=== PATIENT | male | born 1955 | race Caucasian/White ===

== ENCOUNTER 2016-12-11 22:50 | Emergency (ER) | payer OTHER ==
[2016-12-11 23:16] VITALS: O2SAT 96
--- NOTE | 2016-12-11 23:38 | ERPHSYRPT ---
- History of Present Illness Time Seen by Provider: 12/11/16 23:34 Source: patient, family Exam Limitations: no limitations Patient Subjective Stated Complaint: dog bite to left index finger Triage Nursing Assessment: pt alert and oriented x3, lung sounds clear, pulses strong and present in radius, cap refill immediate. patietns daughter cleaned with peroxide at home, he came in because concerned he might need stitches Physician History: pt has dog bite to left index; tendon function is intact with full ROM dog shots are UTD for rabies ; pt needs tet. no other injuries; Timing/Duration: today Quality: painful Severity: moderate Location: hands Possible Causes: other (dog bite) Associated Symptoms: denies symptoms Allergies/Adverse Reactions: codeine [Codeine] Allergy (Mild, Verified 10/12/16 14:50) Rash Hx Tetanus, Diphtheria Vaccination/Date Given: No Hx Influenza Vaccination/Date Given: No Hx Pneumococcal Vaccination/Date Given: No Immunizations Up to Date: Yes - Review of Systems Constitutional: No Fever, No Chills Eyes: No Symptoms Ears, Nose, & Throat: No Symptoms Respiratory: No Cough, No Dyspnea Cardiac: No Chest Pain, No Edema, No Syncope Abdominal/Gastrointestinal: No Abdominal Pain, No Nausea, No Vomiting, No Diarrhea Genitourinary Symptoms: No Dysuria Musculoskeletal: No Back Pain, No Neck Pain Skin: No Rash Neurological: No Dizziness, No Focal Weakness, No Sensory Changes Psychological: No Symptoms Endocrine: No Symptoms All Other Systems: Reviewed and Negative - Past Medical History Pertinent Past Medical History: Yes Neurological History: No Pertinent History ENT History: No Pertinent History Cardiac History: No Pertinent History, Hypertension Respiratory History: Bronchitis, Pneumonia Endocrine Medical History: No Pertinent History Musculoskeletal History: Arthritis GI Medical History: No Pertinent History History: No Pertinent History Psycho-Social History: Other Male Reproductive Disorders: Testicular Cancer - Past Surgical History Past Surgical History: Yes Neuro Surgical History: No Pertinent History Cardiac: No Pertinent History Respiratory: No Pertinent History Gastrointestinal: No Pertinent History Genitourinary: No Pertinent History Musculoskeletal: Orthopedic Surgery Male Surgical History: Testicular Surgery, Vasectomy Other Surgical History: back surgery - Social History Smoking Status: Never smoker How long have you smoked: 19 Exposure to second hand smoke: No Drug Use: none Patient Lives Alone: No - Nursing Vital Signs Nursing Vital Signs: Initial Vital Signs Temperature 98.7 F Temperature Source Oral Pulse Rate 83 Respiratory Rate 16 Blood Pressure [] 134/83 Pain Intensity 0 - Physical Exam General Appearance: no apparent distress, alert Eye Exam: PERRL/EOMI, eyes nml inspection Ears, Nose, Throat Exam: normal ENT inspection, pharynx normal, moist mucous membranes Neck Exam: normal inspection, non-tender, supple, full range of motion Respiratory Exam: normal breath sounds, lungs clear, No respiratory distress Cardiovascular Exam: regular rate/rhythm, normal heart sounds Gastrointestinal/Abdomen Exam: soft, mass, No tenderness Rectal Exam: deferred Back Exam: normal inspection, normal range of motion, No CVA tenderness, No vertebral tenderness Extremity Exam: normal range of motion, lacerations (left index) Neurologic Exam: alert, oriented x 3, cooperative, normal mood/affect, sensation nml, No motor deficits Skin Exam: normal color, warm, dry SpO2: 96 Oxygen Delivery: Room Air Procedures - Laceration/Wound Repair Left Finger Wound Location: Left Wound Length (cm): 1.5 (index) Wound's Depth, Shape: irregular, into subcut Wound Explored: clean Irrigated: Yes (100 cc NS) Hibiclens Prep: Yes Anesthesia: 1% Lidocaine Volume Anesthetic (ccs): 2 Wound Debrided: minimal Wound Repaired With: sutures Suture Size/Type: 4-0, prolene Number of Sutures: 3 Layer Closure?: No Sterile Dressing Applied?: Yes Splint Applied?: Yes Sling Applied?: No - Course Nursing assessment & vital signs reviewed: Yes - Radiology Exams Left Hand X-ray Interpretation: Reviewed by me, No Fracture Ordered Tests: Active Orders 24 hr Category Date Time Status Sutures STAT Care 12/11/16 23:40 Active HAND (MINIMUM 3 VIEWS) Stat Exams 12/11/16 23:39 Taken Medication Summary Discontinued Medications Generic Name Dose Route Start Last Admin Trade Name Freq PRN Reason Stop Dose Admin Diphtheria/Tetanus/Acell Pertussis 0.5 ml 12/11/16 23:39 12/12/16 00:38 Adacel Vial IM 12/11/16 23:40 0.5 ml .ONCE ONE Administration Diphtheria/Tetanus/Acell Pertussis Confirm 12/11/16 23:44 Adacel Vial Administered 12/11/16 23:45 Dose 0.5 ml IM .STK-MED ONE - Progress Progress: improved, re-examined Progress Note: 12/12/16 01:30 lac closed by med student under complete supervision , without incident. Counseled pt/family regarding: diagnosis, need for follow-up, rad results - Departure Time of Disposition: 01:31 Departure Disposition: Home Clinical Impression: Laceration, Dog bite Condition: Good Critical Care Time: No Referrals: DARIEL GUTIÉRREZ [Primary Care Provider] - Instructions: Animal Bites, Care for a Laceration After Repair Additional Instructions: keep clean and dry , change dressing when soiled and clean wound with peroxide and redress. sutures may be removed with your dr in 10 days ; return meantime if any concerns; Prescriptions: Amoxicillin/Potassium Clav [Augmentin 875-125 Tablet] 875 mg PO BID #10 tablet Mupirocin [Bactroban OINTMENT] 22 gm TP DAILY #1 tube
[2016-12-11] MEDS ORDERED: Adacel Vial IM ONE ×2 (23:39→23:44)
[2016-12-12 01:53] VITALS: BP 112/60; PULSE 74
--- NOTE | 2016-12-12 08:53 | XRAY ---
Indication: Index finger dog bite. Comparison: None 3 views of the left hand demonstrates fourth finger ring, mild osteopenia, minimal degenerative changes of all IP joints, and moderate degenerative changes at the base of the first metacarpal. No other bony, articular, or soft tissue abnormalities.
== END 2016-12-12 01:55 | disposition home or self-care (01) ==
LOC: ED 22:50
PROC: 0HQGXZZ Repair Left Hand Skin, External Approach (ICD-10-PCS; principal; 2016-12-12)
DX: S61.211A Laceration without foreign body of left index finger without damage to nail, initial encounter (principal); W54.0XXA Bitten by dog, initial encounter
CPT/HCPCS: 12001; 73130; 90471; 90715; 99284

== ENCOUNTER 2017-12-06 09:52 | Emergency (ER) | payer OTHER ==
--- NOTE | 2017-12-06 10:26 | ERPHSYRPT ---
- History of Present Illness Time Seen by Provider: 12/06/17 10:15 Source: patient Exam Limitations: no limitations Patient Subjective Stated Complaint: Weakness Triage Nursing Assessment: Pt presents to the ED with complaints of "shaking and not feeling well." Pt states he began to sweat. Pt states no other complaints, states he has no pain at this time. No distress noted. Pt is A&O x4. Physician History: The patient is a 62-year-old male with his complaining that at about 7:00 this morning while at work he suddenly started sweating and felt nauseated. He did not vomit. He denies shortness of breath or chest pain. The sweating and ill feeling lasted 45 minutes. During this time he also felt like he might pass out but never did. He said when he was walking, he would walk sort of sideways. His work sent him to be evaluated. He now is beginning to feel better. His past medical history is significant for hypertension, mood disorder , tonsillectomy, this ectomy, tumors removed from testicle, and kidney stones. Timing/Duration: today Severity: moderate Modifying Factors: Improves With: nothing Associated Symptoms: nausea, diaphoresis, weakness, No shortness of breath, No chest pain, No syncope Allergies/Adverse Reactions: codeine [Codeine] Allergy (Mild, Verified 12/06/17 11:58) Rash Home Medications: Chlorthalidone [Chlorthalidone] 25 mg PO DAILY 12/06/17 [History] Diazepam [Diazepam] 10 mg PO TIDPRN PRN 12/06/17 [History] Losartan Potassium [Losartan Potassium] 100 mg PO DAILY 12/06/17 [History] Hx Tetanus, Diphtheria Vaccination/Date Given: Yes Hx Influenza Vaccination/Date Given: No Hx Pneumococcal Vaccination/Date Given: No Immunizations Up to Date: No - Review of Systems Constitutional: Weakness Eyes: No Symptoms Ears, Nose, & Throat: No Symptoms Respiratory: No Cough, No Dyspnea Cardiac: No Chest Pain, No Edema, No Syncope Abdominal/Gastrointestinal: Nausea, No Abdominal Pain, No Vomiting, No Diarrhea Genitourinary Symptoms: No Dysuria Musculoskeletal: No Back Pain, No Neck Pain Skin: No Rash Neurological: Dizziness, No Headache Psychological: No Symptoms Endocrine: No Symptoms Hematologic/Lymphatic: No Symptoms Immunological/Allergic: No Symptoms All Other Systems: Reviewed and Negative - Past Medical History Pertinent Past Medical History: Yes Neurological History: No Pertinent History ENT History: No Pertinent History Cardiac History: No Pertinent History, Hypertension Respiratory History: Bronchitis, Pneumonia Endocrine Medical History: No Pertinent History Musculoskeletal History: Arthritis GI Medical History: No Pertinent History History: No Pertinent History Psycho-Social History: Other Male Reproductive Disorders: Testicular Cancer - Past Surgical History Past Surgical History: Yes Neuro Surgical History: No Pertinent History Cardiac: No Pertinent History Respiratory: No Pertinent History Gastrointestinal: No Pertinent History Genitourinary: No Pertinent History Musculoskeletal: Orthopedic Surgery Male Surgical History: Testicular Surgery, Vasectomy Other Surgical History: back surgery - Social History Smoking Status: Former smoker How long have you smoked: 19 Exposure to second hand smoke: No Drug Use: none Patient Lives Alone: No - Nursing Vital Signs Nursing Vital Signs: Initial Vital Signs Temperature 97.6 F 12/06/17 10:00 Pulse Rate 67 12/06/17 10:00 Respiratory Rate 16 12/06/17 10:00 Blood Pressure 143/94 12/06/17 10:00 O2 Sat by Pulse Oximetry 99 12/06/17 10:00 Pain Scale Pain Intensity 0 - Physical Exam General Appearance: no apparent distress, alert Eye Exam: PERRL/EOMI, eyes nml inspection Ears, Nose, Throat Exam: normal ENT inspection, TMs normal, pharynx normal, moist mucous membranes Neck Exam: normal inspection, non-tender, supple, full range of motion Respiratory Exam: normal breath sounds, lungs clear, No respiratory distress Cardiovascular Exam: regular rate/rhythm, normal heart sounds, normal peripheral pulses Gastrointestinal/Abdomen Exam: soft, normal bowel sounds, No tenderness, No mass Rectal Exam: not done Back Exam: normal inspection, normal range of motion, No CVA tenderness, No vertebral tenderness Extremity Exam: normal inspection, normal range of motion, pelvis stable Neurologic Exam: alert, oriented x 3, cooperative, normal mood/affect, nml cerebellar function, nml station & gait, sensation nml, No motor deficits Skin Exam: normal color, warm, dry, No rash Lymphatic Exam: No adenopathy SpO2 Interpretation: normal SpO2: 99 Oxygen Delivery: Room Air - Course EKG Interpreted by Me: RATE, Sinus Rhythm, NORMAL AXIS, NORMAL INTERVALS, NORMAL QRS, NORMAL ST-T, Other (No change compared to EKG 11/26/14.) - Radiology Exams Chest X-ray Interpretation: Reviewed by me, Teleradiologist Report, Negative (per Dr Moe) Abdomen X-ray Interpretation: Reviewed by me, Negative (per Dr Moe) - CT Exams Head CT Interpretation: Tele-radiologist Report, Other (NO acute intracranial abnormalities; right posterior fossa arachnoid cyst; per Dr Moe.) Ordered Tests: Active Orders 24 hr Category Date Time Status Clean Catch Urine Specimen STAT Care 12/06/17 10:30 Active EKG-ER Only STAT Care 12/06/17 10:30 Active IV Insertion STAT Care 12/06/17 10:30 Active Orthostatic Vital Signs STAT Care 12/06/17 10:32 Active CHEST 2 VIEWS (PA AND LAT) Stat Exams 12/06/17 10:30 Completed HEAD WITHOUT CONTRAST [CT] Stat Exams 12/06/17 10:32 Completed KUB Stat Exams 12/06/17 10:30 Completed CBC W DIFF Stat Lab 12/06/17 10:45 Completed CMP Routine Lab 12/06/17 10:45 Completed LIPASE Routine Lab 12/06/17 10:45 Completed Lactic Acid Stat Lab 12/06/17 11:40 Completed TROPONIN Q3H Lab 12/06/17 10:45 Completed TROPONIN Q3H Lab 12/06/17 13:30 Ordered TROPONIN Q3H Lab 12/06/17 16:30 Ordered TROPONIN Q3H Lab 12/06/17 19:30 Ordered TROPONIN Q3H Lab 12/06/17 22:30 Ordered UA W/RFX UR CULTURE Stat Lab 12/06/17 11:30 Completed Medication Summary Discontinued Medications Generic Name Dose Route Start Last Admin Trade Name Freq PRN Reason Stop Dose Admin Sodium Chloride 1,000 mls @ 999 mls/hr 12/06/17 10:30 12/06/17 10:37 Sodium Chloride 0.9% 1000 Ml IV 12/06/17 11:30 999 mls/hr .Q1H1M STA Administration Sodium Chloride Confirm 12/06/17 10:35 Sodium Chloride 0.9% 1000 Ml Administered 12/06/17 10:36 Dose 1,000 mls @ ud .ROUTE .STK-MED ONE Ondansetron HCl 4 mg 12/06/17 10:30 12/06/17 10:37 Zofran 4 Mg/2 Ml Vial IV 12/06/17 10:31 4 mg STAT ONE Administration Ondansetron HCl Confirm 12/06/17 10:35 Zofran 4 Mg/2 Ml Vial Administered 12/06/17 10:36 Dose 4 mg .ROUTE .STK-MED ONE Lab/Rad Data: Laboratory Result Diagrams 12/06/17 10:45 12/06/17 10:45 Laboratory Results 12/06/17 12/06/17 12/06/17 Range/Units 11:40 11:30 10:45 WBC 7.6 (4.0-10.5) K/mm3 RBC 5.39 (4.1-5.6) M/mm3 Hgb 16.5 (12.5-18.0) gm/dl Hct 47.5 (42-50) % MCV 88.1 (78-100) fl MCH 30.6 (26-32) pg MCHC 34.7 (32-36) g/dl RDW 12.8 (11.5-14.0) % Plt Count 217 (150-450) K/mm3 MPV 12.5 H (6-9.5) fl Gran % 73.9 H (36.0-66.0) % Eos # (Auto) 0.05 (0-0.5) Absolute Lymphs (auto) 1.11 (1.0-4.6) Absolute Monos (auto) 0.80 (0.0-1.3) Lymphocytes % 14.6 L (24.0-44.0) % Monocytes % 10.5 (0.0-12.0) % Eosinophils % 0.7 (0.00-5.0) % Basophils % 0.3 (0.0-0.4) % Absolute Granulocytes 5.63 (1.4-6.9) Basophils # 0.02 (0-0.4) Sodium (137-145) mmol/L Potassium (3.5-5.1) mmol/L Chloride (98-107) mmol/L Carbon Dioxide (22-30) mmol/L Anion Gap (5-15) MEQ/L BUN (9-20) mg/dL Creatinine (0.66-1.25) mg/dL Estimated GFR ML/MIN Glucose (74-106) mg/dL Lactic Acid 1.0 (0.4-2.0) Calcium (8.4-10.2) mg/dL Total Bilirubin (0.2-1.3) mg/dL AST (17-59) U/L ALT (0-50) U/L Alkaline Phosphatase (38-126) U/L Troponin I (0.000-0.034) ng/mL Serum Total Protein (6.3-8.2) g/dL Albumin (3.5-5.0) g/dL Lipase (23-300) U/L Ur Collection Type CLEAN CATCH Urine Color YELLOW (YELLOW) Urine Appearance CLEAR (CLEAR) Urine pH 6.5 (5-6) Ur Specific [place] 1.005 (1.005-1.025) Urine Protein NEGATIVE (Negative) Urine Ketones NEGATIVE (NEGATIVE) Urine Blood NEGATIVE (0-5) Leandro/ul Urine Nitrite NEGATIVE (NEGATIVE) Urine Bilirubin NEGATIVE (NEGATIVE) Urine Urobilinogen NORMAL (0-1) mg/dL Ur Leukocyte Esterase NEGATIVE (NEGATIVE) Urine Culture Reflexed NO (NO) Urine Glucose NEGATIVE (NEGATIVE) mg/dL Specimen Received 12/06/17 1130 12/06/17 Range/Units 10:45 WBC (4.0-10.5) K/mm3 RBC (4.1-5.6) M/mm3 Hgb (12.5-18.0) gm/dl Hct (42-50) % MCV (78-100) fl MCH (26-32) pg MCHC (32-36) g/dl RDW (11.5-14.0) % Plt Count (150-450) K/mm3 MPV (6-9.5) fl Gran % (36.0-66.0) % Eos # (Auto) (0-0.5) Absolute Lymphs (auto) (1.0-4.6) Absolute Monos (auto) (0.0-1.3) Lymphocytes % (24.0-44.0) % Monocytes % (0.0-12.0) % Eosinophils % (0.00-5.0) % Basophils % (0.0-0.4) % Absolute Granulocytes (1.4-6.9) Basophils # (0-0.4) Sodium 140 (137-145) mmol/L Potassium 4.1 (3.5-5.1) mmol/L Chloride 102 (98-107) mmol/L Carbon Dioxide 27 (22-30) mmol/L Anion Gap 15.1 H (5-15) MEQ/L BUN 21 H (9-20) mg/dL Creatinine 1.05 (0.66-1.25) mg/dL Estimated GFR > 60.0 ML/MIN Glucose 95 (74-106) mg/dL Lactic Acid (0.4-2.0) Calcium 10.2 (8.4-10.2) mg/dL Total Bilirubin 0.70 (0.2-1.3) mg/dL AST 32 (17-59) U/L ALT 25 (0-50) U/L Alkaline Phosphatase 64 (38-126) U/L Troponin I < 0.012 (0.000-0.034) ng/mL Serum Total Protein 7.5 (6.3-8.2) g/dL Albumin 4.6 (3.5-5.0) g/dL Lipase 123 (23-300) U/L Ur Collection Type Urine Color (YELLOW) Urine Appearance (CLEAR) Urine pH (5-6) Ur Specific [place] (1.005-1.025) Urine Protein (Negative) Urine Ketones (NEGATIVE) Urine Blood (0-5) Leandro/ul Urine Nitrite (NEGATIVE) Urine Bilirubin (NEGATIVE) Urine Urobilinogen (0-1) mg/dL Ur Leukocyte Esterase (NEGATIVE) Urine Culture Reflexed (NO) Urine Glucose (NEGATIVE) mg/dL Specimen Received - Progress Progress: improved Counseled pt/family regarding: lab results, diagnosis, need for follow-up, rad results - Departure Time of Disposition: 12:13 Departure Disposition: Home Clinical Impression: Dizziness, Intracranial arachnoid cyst Condition: Stable Critical Care Time: No Referrals: DARIEL GUTIÉRREZ [Primary Care Provider] - Additional Instructions: You had a brief episode of diaphoresis and dizziness. You were given fluids by IV in the ER. You also have a arachnoid cyst within your skull. This arachnoid cyst likely was present at . Please follow-up with your doctor for further discussion. You can go back to work tomorrow.
[2017-12-06] MEDS ORDERED: Zofran 4 MG/2 ML VIAL ONE (10:35)
[2017-12-06] MEDS ORDERED: Sodium Chloride 0.9% 1000 ML 1,000 ML ONE (10:35)
[2017-12-06] MEDS: Zofran 4 MG/2 ML VIAL IV ONE (10:37)
[2017-12-06] MEDS: Sodium Chloride 0.9% 1000 ML 1,000 ML IV STA (10:37)
[2017-12-06 10:48] LABS: BASOPHIL % 0.3 % (0.0-0.4); Basophil (Absolute #) 0.02 (0-0.4); Eosinophil % 0.7 % (0.00-5.0); Eosinophil (Absolute #) 0.05 (0-0.5); Granulocyte Absolute (ANC) 5.63 (1.4-6.9); Granulocytes % 73.9 % (36.0-66.0); Hematocrit 47.5 % (42-50); Hemoglobin 16.5 gm/dl (12.5-18.0); Lymphocyte (Absolute #) 1.11 (1.0-4.6); Lymphocytes % 14.6 % (24.0-44.0); Mean Cell Volume 88.1 fl (78-100); Mean Corpuscular Hemoglobin 30.6 pg (26-32); Mean Corpuscular Hgb Concent. 34.7 g/dl (32-36); Mean Platelet Volume 12.5 fl (6-9.5); Monocytes % 10.5 % (0.0-12.0); Platelet Count 217 K/mm3 (150-450); Red Blood Count 5.39 M/mm3 (4.1-5.6); Red Cell Distribution Width 12.8 % (11.5-14.0); White Blood Count 7.6 K/mm3 (4.0-10.5)
[2017-12-06 11:01] LABS: ALBUMIN 4.6 g/dL (3.5-5.0); ALKALINE PHOSPHATASE 64 U/L (38-126); ANION GAP 15.1 MEQ/L (5-15); BLOOD UREA NITROGEN 21 mg/dL (9-20); CHLORIDE 102 mmol/L (98-107); Calcium 10.2 mg/dL (8.4-10.2); Carbon Dioxide 27 mmol/L (22-30); Creatinine 1 1.05 mg/dL (0.66-1.25); Glucose 95 mg/dL (74-106); LIPASE 123 U/L (23-300); Potassium 4.1 mmol/L (3.5-5.1); SGOT/AST 32 U/L (17-59); SGPT/ALT 25 U/L (0-50); SODIUM 140 mmol/L (137-145); Total Protein 7.5 g/dL (6.3-8.2)
[2017-12-06 11:18] LABS: TROPONIN < 0.012 ng/mL (0.000-0.034)
--- NOTE | 2017-12-06 11:27 | XRAY ---
Indication: Fever and diaphoresis. Comparison: August 03, 2012. KUB nonacute and nonobstructed with multiple overlying monitoring leads. Solid organs unremarkable. Osseous structures intact again with mild lumbar degenerative changes. Impression: Negative KUB.
--- NOTE | 2017-12-06 11:27 | XRAY ---
Indication: Fever and diaphoresis. Comparison: None PA/lateral chest slightly underinflated with minimal bibasilar atelectasis. No focal infiltrate, consolidation, or large effusion. Heart is not enlarged. Bony thorax intact with minimal degenerative changes. Impression: Nonacute underinflated chest.
--- NOTE | 2017-12-06 11:28 | XRAY ---
Indication: Dizziness. Multiple contiguous axial images obtained through the head without contrast. Comparison: None There is a 3 cm right paramedian posterior fossa arachnoid cyst. Otherwise normal appearing brain parenchyma, ventricles, and bony calvarium. Floor of the maxillary sinuses demonstrates minimal mucosal thickening bilaterally. Remaining visualized paranasal sinuses and mastoid air cells are clear. Impression: 1. Right posterior fossa arachnoid cyst. 2. No acute intracranial abnormalities. 3. Minimal maxillary sinus disease. CTDI 69.11
[2017-12-06 11:50] VITALS: BP 132/80; PULSE 71
[2017-12-06 11:59] LABS: Appearance CLEAR (CLEAR); Bilirubin NEGATIVE (NEGATIVE); Blood NEGATIVE Ery/ul (0-5); Glucose NEGATIVE (NEGATIVE); Ketones NEGATIVE (NEGATIVE); Leukocyte Esterase NEGATIVE (NEGATIVE); Nitrite NEGATIVE (NEGATIVE); Ph 6.5 (5-6); Protein,Urine Dip NEGATIVE (Negative); Specific Gravity 1.005 (1.005-1.025); Urobilinogen NORMAL mg/dL (0-1)
[2017-12-06 12:16] VITALS: O2SAT 99
== END 2017-12-06 12:27 | disposition home or self-care (01) ==
LOC: ED 09:52
DX: R42 Dizziness and giddiness (principal); G93.0 Cerebral cysts; R61 Generalized hyperhidrosis; R11.0 Nausea; Z79.899 Other long term (current) drug therapy
CPT/HCPCS: 36000; 36415; 70450; 71046; 74018; 80053; 81002; 82962; 83605; 83690; 84484; 85025; 93005; 93041; 96360; 99284; J2405

== ENCOUNTER 2018-09-10 17:02 | Emergency (ER) | payer MEDICARE, OTHER ==
[2018-09-10] MEDS ORDERED: Zofran 4 MG/2 ML VIAL IV ONE (17:30)
[2018-09-10] MEDS ORDERED: TORAdol 30 mg Injection IV ONE (17:30)
[2018-09-10] MEDS ORDERED: Sodium Chloride 0.9% 1000 ML 1,000 ML IV STA ×2 (17:30→18:32)
[2018-09-10] MEDS ORDERED: TORAdol 30 mg Injection ONE (17:34)
[2018-09-10] MEDS ORDERED: Sodium Chloride 0.9% 1000 ML 1,000 ML ONE ×2 (17:34→18:35)
[2018-09-10] MEDS ORDERED: Zofran 4 MG/2 ML VIAL ONE (17:34)
--- NOTE | 2018-09-10 17:50 | ERPHSYRPT ---
- History of Present Illness Time Seen by Provider: 09/10/18 17:48 Historian: patient Exam Limitations: no limitations Patient Subjective Stated Complaint: pt states "I have a Hx of kidney stones and about an hour and a half ago my right lower back started to hurt and I have tried to pee but I cannot." Triage Nursing Assessment: Pt alert and oriented X 3, skin pwd. Pt moaning, grunting, ambulates with a hunched over gait, able to speak in clear full sentences. no apparent respiratory distress. Physician History: Patient presents with right lower back pain for one half hour severe sharp Patient does have a history of kidney stones he states he has been unable to urinate Past medical history includes pneumonia, bronchitis, high blood pressure, testicular cancer past surgical history includes mastectomy, arthritis, orthopedic surgery Social history includes daily a small amount of alcohol Timing/Duration: today (1-1/2 hours ago) Activities at Onset: none Quality: aching Abdominal Pain Onset Location: RLQ, flank (right flank) Severity of Pain-Max: moderate Severity of Pain-Current: moderate Modifying Factors: Improves With: nothing, other (unable to urinate). Worsens With: analgesics, antacids, breathing, coughing, defecating, eating, exercise, lying down, movement, rest, urinating, vomiting, position Associated Symptoms: back (right flank pain), No chest pain, No diaphoresis, No diarrhea, No fever/chills, No fatigue, No headache, No heartburn, No loss of appetite, No nausea, No neck pain, No rash, No shortness of breath, No syncope, No testicular pain, No vomiting, No weakness Previous symptoms: same symptoms as today (similar symptoms with kidney stoner) Allergies/Adverse Reactions: codeine [Codeine] Allergy (Mild, Verified 12/06/17 11:58) Rash Home Medications: Losartan Potassium 100 mg PO DAILY 12/06/17 [History] diazePAM [Diazepam] 10 mg PO TIDPRN PRN 12/06/17 [History] Fluoxetine HCl 30 mg PO DAILY 09/10/18 [History] Hx Tetanus, Diphtheria Vaccination/Date Given: Yes Hx Influenza Vaccination/Date Given: No Hx Pneumococcal Vaccination/Date Given: No Immunizations Up to Date: Yes - Review of Systems Constitutional: No Fever, No Chills Eyes: No Symptoms Ears, Nose, & Throat: No Symptoms Respiratory: No Cough, No Dyspnea Cardiac: No Chest Pain, No Edema, No Syncope Abdominal/Gastrointestinal: Abdominal Pain (Right lower quadrant abdominal pain) , No Nausea, No Vomiting, No Diarrhea, No Constipation, No Hematemesis, No Hematochezia, No Melena, No Dysphagia Genitourinary Symptoms: Urinary Retention, Flank Pain (right flank pain) Musculoskeletal: Back Pain (rightflank pain), No Neck Pain Skin: No Rash Neurological: No Dizziness, No Focal Weakness, No Sensory Changes Psychological: No Symptoms Endocrine: No Symptoms All Other Systems: Reviewed and Negative - Past Medical History Pertinent Past Medical History: Yes Neurological History: No Pertinent History ENT History: No Pertinent History Cardiac History: No Pertinent History, Hypertension Respiratory History: Bronchitis, Pneumonia Endocrine Medical History: No Pertinent History Musculoskeletal History: Arthritis GI Medical History: No Pertinent History History: No Pertinent History Psycho-Social History: Other Male Reproductive Disorders: Testicular Cancer - Past Surgical History Past Surgical History: Yes Neuro Surgical History: No Pertinent History Cardiac: No Pertinent History Respiratory: No Pertinent History Gastrointestinal: No Pertinent History Genitourinary: No Pertinent History Musculoskeletal: Orthopedic Surgery Male Surgical History: Testicular Surgery, Vasectomy Other Surgical History: back surgery - Social History Smoking Status: Never smoker How long have you smoked: 19 Exposure to second hand smoke: No Drug Use: none Patient Lives Alone: No - Nursing Vital Signs Nursing Vital Signs: Initial Vital Signs Temperature 97.8 F 09/10/18 17:10 Pulse Rate 62 09/10/18 17:10 Respiratory Rate 20 09/10/18 17:10 Blood Pressure 193/93 09/10/18 17:10 O2 Sat by Pulse Oximetry 99 09/10/18 17:10 Pain Scale Pain Intensity 10 - Physical Exam General Appearance: moderate distress, alert, other (well-developed white male moderate distress) Eye Exam: PERRL/EOMI, eyes nml inspection Ears, Nose, Throat Exam: normal ENT inspection, pharynx normal, moist mucous membranes Neck Exam: normal inspection, non-tender, supple, full range of motion Respiratory Exam: normal breath sounds, lungs clear, No respiratory distress Cardiovascular Exam: regular rate/rhythm, normal heart sounds Gastrointestinal/Abdomen Exam: soft, normal bowel sounds, other (Right lateral lower abdominal pain with palpation) Back Exam: CVA tenderness (Right flank tenderness) Extremity Exam: normal inspection, normal range of motion, pelvis stable Neurologic Exam: alert, oriented x 3, cooperative, instructor watch assembly II-XII nml as tested, normal mood/affect, nml cerebellar function, sensation nml, No motor deficits Skin Exam: normal color, warm, dry SpO2: 99 - Course Nursing assessment & vital signs reviewed: Yes - CT Exams Abdomen/Pelvis CT Interpretation: Tele-radiologist Report (CT abdomen and pelvis: Impression 1 severe calcified coronary artery disease. 2. Right inguinal hernia containing fat. 3. 2 mm right ureteral pelvic junction stone with small right hydronephrosis) Ordered Tests: Active Orders 24 hr Category Date Time Status Carvalho [Catheter-[place] Carvalho] STAT Care 09/10/18 18:34 Active IV Insertion STAT Care 09/10/18 17:30 Active ABDOMEN AND PELVIS W/0 CONTRAS [CT] Stat Exams 09/10/18 17:30 Taken AMYLASE Stat Lab 09/10/18 17:30 Completed CBC W DIFF Stat Lab 09/10/18 17:30 Completed CMP Stat Lab 09/10/18 17:30 Completed LIPASE Stat Lab 09/10/18 17:30 Completed Manual Differential NC Stat Lab 09/10/18 17:30 Completed UA W/RFX UR CULTURE Stat Lab 09/10/18 18:34 Completed Medication Summary Generic Name Dose Route Start Last Admin Trade Name Freq PRN Reason Stop Dose Admin Sodium Chloride 1,000 mls @ 200 mls/hr 09/10/18 18:32 09/10/18 18:37 Sodium Chloride 0.9% 1000 Ml IV 09/10/18 23:31 200 mls/hr .Q5H STA Administration Discontinued Medications Generic Name Dose Route Start Last Admin Trade Name Freq PRN Reason Stop Dose Admin Sodium Chloride 1,000 mls @ 999 mls/hr 09/10/18 17:30 09/10/18 18:43 Sodium Chloride 0.9% 1000 Ml IV 09/10/18 18:30 Infused .Q1H1M STA Infusion Sodium Chloride Confirm 09/10/18 17:34 Sodium Chloride 0.9% 1000 Ml Administered 09/10/18 17:35 Dose 1,000 mls @ ud .ROUTE .STK-MED ONE Sodium Chloride Confirm 09/10/18 18:35 Sodium Chloride 0.9% 1000 Ml Administered 09/10/18 18:36 Dose 1,000 mls @ ud .ROUTE .STK-MED ONE Ketorolac Tromethamine 30 mg 09/10/18 17:30 09/10/18 17:36 Toradol 30 Mg Injection IV 09/10/18 17:31 30 mg STAT ONE Administration Ketorolac Tromethamine Confirm 09/10/18 17:34 Toradol 30 Mg Injection Administered 09/10/18 17:35 Dose 30 mg .ROUTE .STK-MED ONE Morphine Sulfate 4 mg 09/10/18 18:30 09/10/18 18:37 Morphine Sulfate 4 Mg Inj IV 09/10/18 18:31 4 mg STAT ONE Administration Morphine Sulfate Confirm 09/10/18 18:35 Morphine Sulfate 4 Mg Inj Administered 09/10/18 18:36 Dose 4 mg .ROUTE .STK-MED ONE Ondansetron HCl 4 mg 09/10/18 17:30 09/10/18 17:36 Zofran 4 Mg/2 Ml Vial IV 09/10/18 17:31 4 mg STAT ONE Administration Ondansetron HCl Confirm 09/10/18 17:34 Zofran 4 Mg/2 Ml Vial Administered 09/10/18 17:35 Dose 4 mg .ROUTE .STK-MED ONE Lab/Rad Data: Laboratory Result Diagrams 09/10/18 17:30 09/10/18 17:30 Laboratory Results 09/10/18 09/10/18 09/10/18 Range/Units 18:34 17:30 17:30 WBC 9.6 (4.0-10.5) K/mm3 RBC 5.49 (4.1-5.6) M/mm3 Hgb 16.7 (12.5-18.0) gm/dl Hct 49.7 (42-50) % MCV 90.5 (78-100) fl MCH 30.4 (26-32) pg MCHC 33.6 (32-36) g/dl RDW 13.5 (11.5-14.0) % Plt Count 186 (150-450) K/mm3 MPV 12.2 H (6-9.5) fl Gran % 77.6 H (36.0-66.0) % Eos # (Auto) 0.07 (0-0.5) Absolute Lymphs (auto) 1.27 (1.0-4.6) Absolute Monos (auto) 0.80 (0.0-1.3) Lymphocytes % 13.2 L (24.0-44.0) % Monocytes % 8.3 (0.0-12.0) % Eosinophils % 0.7 (0.00-5.0) % Basophils % 0.2 (0.0-0.4) % Absolute Granulocytes 7.44 H (1.4-6.9) Basophils # 0.02 (0-0.4) Sodium 141 (137-145) mmol/L Potassium 4.0 (3.5-5.1) mmol/L Chloride 103 (98-107) mmol/L Carbon Dioxide 26 (22-30) mmol/L Anion Gap 16.0 H (5-15) MEQ/L BUN 18 (9-20) mg/dL Creatinine 1.13 (0.66-1.25) mg/dL Estimated GFR > 60.0 ML/MIN Glucose 100 (74-106) mg/dL Calcium 9.6 (8.4-10.2) mg/dL AST 26 (17-59) U/L ALT 22 (0-50) U/L Alkaline Phosphatase 86 (38-126) U/L Serum Total Protein 7.0 (6.3-8.2) g/dL Albumin 4.4 (3.5-5.0) g/dL Amylase 54 (30-110) U/L Lipase 71 (23-300) U/L Urine Color YELLOW (YELLOW) Urine Appearance CLOUDY (CLEAR) Urine pH 6.0 (5-6) Ur Specific [place] 1.019 (1.005-1.025) Urine Protein 100 (Negative) Urine Ketones TRACE (NEGATIVE) Urine Blood LARGE (0-5) Leandro/ul Urine Nitrite NEGATIVE (NEGATIVE) Urine Bilirubin NEGATIVE (NEGATIVE) Urine Urobilinogen NEGATIVE (0-1) mg/dL Ur Leukocyte Esterase NEGATIVE (NEGATIVE) Urine WBC (Auto) NONE (0-5) /HPF Urine RBC (Auto) >101 (0-2) /HPF U Epithel Cells (Auto) NONE (FEW) /HPF Urine Bacteria (Auto) NONE (NEGATIVE) /HPF Urine Mucus (Auto) SLIGHT (NEGATIVE) /HPF Urine Culture Reflexed NO (NO) Urine Glucose NEGATIVE (NEGATIVE) mg/dL - Progress Progress: improved Progress Note: 09/10/18 19:29 This is a 63-year-old white male with history of pneumonia, bronchitis, high blood pressure, testicular cancer, arthritis who has had kidney stones in the past He arrives with complaint of severe pain in the right flank symptoms for approximately one and half hours prior to arrival. Patient has a urine that shows greater than 100 red cells per high-power field CT of the abdomen Remarkable for 1. Severe calcified coronary artery disease 2. Right inguinal hernia containing fat 3. 2 mm right UPJ stone with mild right hydronephrosis. Patient is given initial Toradol and Zofran IV with IV normal saline. Afterwards he is given morphine 4 mg IV. Patient is feeling better. Patient wants to go home. Will discharge patient patient to return home strain his urine. I will write for [place] for pain.. Patient to follow-up with his family doctor. Patient is informed of his CT findings - Departure Time of Disposition: 19:35 Departure Disposition: Home Clinical Impression: Right flank pain Urolithiasis Qualifiers: Urinary calculus location: ureter Qualified Code(s): N20.1 - Calculus of ureter Condition: Fair Critical Care Time: No Referrals: DONALD PICKENS MD [Primary Care Provider] - Additional Instructions: Return home. Plenty of fluids. [place] as prescribed as needed for pain. Strain all of your urine. Follow-up with your family doctor. Call and make an appointment. Return for acute distress or for severe symptoms. Prescriptions: Hydrocodone/APAP 5-325 Tab^^^ [[place] 5-325 Tablet^^^] 1 tab PO Q4-6HPRN PRN #12 tablet MDD 6 PRN Reason: Pain
[2018-09-10 17:56] LABS: BASOPHIL % 0.2 % (0.0-0.4); Basophil (Absolute #) 0.02 (0-0.4); Eosinophil % 0.7 % (0.00-5.0); Eosinophil (Absolute #) 0.07 (0-0.5); Granulocytes % 77.6 % (36.0-66.0); Hematocrit 49.7 % (42-50); Hemoglobin 16.7 gm/dl (12.5-18.0); Lymphocyte (Absolute #) 1.27 (1.0-4.6); Lymphocytes % 13.2 % (24.0-44.0); Mean Cell Volume 90.5 fl (78-100); Mean Corpuscular Hemoglobin 30.4 pg (26-32); Mean Corpuscular Hgb Concent. 33.6 g/dl (32-36); Mean Platelet Volume 12.2 fl (6-9.5); Monocytes % 8.3 % (0.0-12.0); Platelet Count 186 K/mm3 (150-450); Red Blood Count 5.49 M/mm3 (4.1-5.6); Red Cell Distribution Width 13.5 % (11.5-14.0); White Blood Count 9.6 K/mm3 (4.0-10.5)
[2018-09-10 18:22] LABS: ALBUMIN 4.4 g/dL (3.5-5.0); ALKALINE PHOSPHATASE 86 U/L (38-126); AMYLASE 54 U/L (30-110); BLOOD UREA NITROGEN 18 mg/dL (9-20); CHLORIDE 103 mmol/L (98-107); Calcium 9.6 mg/dL (8.4-10.2); Carbon Dioxide 26 mmol/L (22-30); Creatinine 1 1.13 mg/dL (0.66-1.25); Glucose 100 mg/dL (74-106); LIPASE 71 U/L (23-300); SGOT/AST 26 U/L (17-59); SGPT/ALT 22 U/L (0-50); SODIUM 141 mmol/L (137-145)
[2018-09-10] MEDS ORDERED: MORPHINE SULFATE 4 MG INJ IV ONE (18:30)
[2018-09-10] MEDS ORDERED: MORPHINE SULFATE 4 MG INJ ONE (18:35)
[2018-09-10 19:10] LABS: Appearance CLOUDY (CLEAR); Bilirubin NEGATIVE (NEGATIVE); Blood LARGE Ery/ul (0-5); Glucose NEGATIVE (NEGATIVE); Ketones TRACE (NEGATIVE); Leukocyte Esterase NEGATIVE (NEGATIVE); Mucus SLIGHT /HPF (NEGATIVE); Nitrite NEGATIVE (NEGATIVE); Protein,Urine Dip 100 (Negative); Specific Gravity 1.019 (1.005-1.025); Urobilinogen NEGATIVE mg/dL (0-1)
[2018-09-10 19:12] LABS: RBC >101 /HPF (0-2)
[2018-09-10] MEDS ORDERED: NORCO 5/325 MG PO ONE (19:41)
[2018-09-10] MEDS ORDERED: NORCO 5/325 MG ONE (19:43)
[2018-09-10 19:47] VITALS: BP 151/76; PULSE 70; O2SAT 98
--- NOTE | 2018-09-10 19:59 | XRAY ---
Indication: Right upper quadrant pain. Multiple contiguous axial images obtained through the abdomen and pelvis without contrast as ordered. Comparison: October 12, 2016. Lung bases again demonstrates minimal dependent atelectasis. No infiltrate or effusion. Heart is not enlarged. Noncontrasted stomach and bowel loops appear nonobstructed. Normal appendix. Stable descending and sigmoid diverticulosis. New 2 mm right UPJ calculus with mild hydronephrosis but no perinephric fluid. New nonobstructing punctate left renal calculus with stable bilateral renal cysts. Remaining liver, gallbladder, pancreas, spleen, adrenal glands, kidneys, ureters, and bladder are unremarkable for noncontrast exam. There remains mild aortoiliac calcifications without AAA. Osseous structures intact again with mild degenerative spondylosis. Stable bilateral fatty inguinal hernias. Impression: 1. New 2 mm right UPJ calculus producing partial obstruction. Also new nonobstructing left renal micro-calculus. 2. Stable bilateral renal cysts, colonic diverticulosis, and bilateral fatty inguinal hernias. Comment: Preliminary interpretation was made by [facility]. No critical discrepancy. CTDI 23.15
== END 2018-09-10 20:09 | disposition home or self-care (01) ==
LOC: ED 17:02
DX: R10.31 Right lower quadrant pain (principal); N20.1 Calculus of ureter; I10 Essential (primary) hypertension; Z85.47 Personal history of malignant neoplasm of testis; I25.10 Atherosclerotic heart disease of native coronary artery without angina pectoris; M19.90 Unspecified osteoarthritis, unspecified site; Z87.442 Personal history of urinary calculi
CPT/HCPCS: 36000; 36415; 51702; 74176; 80053; 81001; 82150; 83690; 85025; 96360; 96361; 96374; 96375; 99285; J1885; J2270; J2405; A9270-GY

== ENCOUNTER 2019-12-11 16:16 | Emergency (ER) | payer MEDICARE, OTHER ==
--- NOTE | 2019-12-11 16:29 | ERPHSYRPT ---
- History of Present Illness Time Seen by Provider: 12/11/19 16:28 Historian: patient Exam Limitations: no limitations Physician History: Mr. Key is a 64-year-old white male who has a history of ureterolithiasis on both sides in the past. This morning at 830, he experienced sudden onset of pain in his right flank area. The pain is radiated down into his right groin area. Throughout the day it is worsened and not improved. It is now significantly painful and patient is here for evaluation and management. Patient is not on any anticoagulation therapy. He has had no nausea vomiting or diarrhea. Patient states he has no abdominal pain. Timing/Duration: today, worse Activities at Onset: none Quality: sharpness, stabbing Abdominal Pain Onset Location: flank (Right) Pain Radiation: groin (Right) Severity of Pain-Max: moderate Severity of Pain-Current: moderate Associated Symptoms: denies symptoms Previous symptoms: same symptoms as today Allergies/Adverse Reactions: codeine [Codeine] Allergy (Mild, Verified 12/11/19 16:23) Rash onion Allergy (Verified 12/11/19 16:23) Home Medications: Losartan Potassium 100 mg PO DAILY 12/06/17 [History] diazePAM [Diazepam] 10 mg PO TIDPRN PRN 12/06/17 [History] Fluoxetine HCl 30 mg PO DAILY 09/10/18 [History] Hx Tetanus, Diphtheria Vaccination/Date Given: Yes Hx Influenza Vaccination/Date Given: No Hx Pneumococcal Vaccination/Date Given: No Travel Risk - International Travel Have you traveled outside of the country in past 3 weeks: No Have you or anyone close to you been diagnosed with or: No Do your reside in a community with a known COVID-19 case?: Yes If Yes where:: [facility] - Coronavirus Screening Has patient experienced Coronavirus symptoms: No - Review of Systems Constitutional: No Symptoms Eyes: No Symptoms Ears, Nose, & Throat: No Symptoms Respiratory: No Symptoms Cardiac: No Symptoms Abdominal/Gastrointestinal: No Symptoms Genitourinary Symptoms: Flank Pain (Right) Musculoskeletal: No Symptoms Skin: No Symptoms Neurological: No Symptoms Psychological: No Symptoms Endocrine: No Symptoms Hematologic/Lymphatic: No Symptoms Immunological/Allergic: No Symptoms All Other Systems: Reviewed and Negative - Past Medical History Pertinent Past Medical History: Yes Neurological History: No Pertinent History ENT History: No Pertinent History Cardiac History: No Pertinent History, Hypertension Respiratory History: Bronchitis, Pneumonia Endocrine Medical History: No Pertinent History Musculoskeletal History: Arthritis GI Medical History: No Pertinent History History: No Pertinent History Psycho-Social History: Other Male Reproductive Disorders: Testicular Cancer - Past Surgical History Past Surgical History: Yes Neuro Surgical History: No Pertinent History Cardiac: No Pertinent History Respiratory: No Pertinent History Gastrointestinal: No Pertinent History Genitourinary: No Pertinent History Musculoskeletal: Orthopedic Surgery Male Surgical History: Testicular Surgery, Vasectomy Other Surgical History: back surgery - Social History Smoking Status: Never smoker How long have you smoked: 19 Exposure to second hand smoke: No Drug Use: none Patient Lives Alone: No - Nursing Vital Signs Nursing Vital Signs: Initial Vital Signs Temperature 97.9 F 12/11/19 16:25 Pulse Rate 70 12/11/19 16:25 Respiratory Rate 19 12/11/19 16:25 Blood Pressure 161/95 12/11/19 16:25 O2 Sat by Pulse Oximetry 96 12/11/19 16:25 Pain Scale Pain Intensity 2 - Physical Exam General Appearance: moderate distress, alert, anxiety Eye Exam: PERRL/EOMI, eyes nml inspection Ears, Nose, Throat Exam: normal ENT inspection, moist mucous membranes Neck Exam: normal inspection, non-tender, supple, full range of motion Respiratory Exam: normal breath sounds, lungs clear, airway intact, No chest tenderness, No respiratory distress Cardiovascular Exam: regular rate/rhythm, normal heart sounds, normal peripheral pulses Gastrointestinal/Abdomen Exam: soft, normal bowel sounds, No tenderness Rectal Exam: not done Back Exam: normal inspection, normal range of motion, CVA tenderness (Right flank), No vertebral tenderness Extremity Exam: normal inspection, normal range of motion, pelvis stable Neurologic Exam: alert, oriented x 3, cooperative, crematory attendant II-XII nml as tested Skin Exam: normal color, warm, dry Lymphatic Exam: No adenopathy SpO2 Interpretation: normal O2 Delivery: Room Air Ordered Tests: Active Orders 24 hr Category Date Time Status IV Insertion STAT Care 12/11/19 16:28 Active ABDOMEN AND PELVIS W/0 CONTRAS [CT] Stat Exams 12/11/19 16:29 Completed AMYLASE Stat Lab 12/11/19 16:30 Completed CBC W DIFF Stat Lab 12/11/19 16:30 Completed CMP Stat Lab 12/11/19 16:30 Completed LIPASE Stat Lab 12/11/19 16:30 Completed Lactic Acid Stat Lab 12/11/19 18:04 Completed UA W/RFX UR CULTURE Stat Lab 12/11/19 16:31 Completed Medication Summary Discontinued Medications Generic Name Dose Route Start Last Admin Trade Name Cristina PRN Reason Stop Dose Admin Hydromorphone HCl 1 mg 12/11/19 16:30 12/11/19 16:34 Hydromorphone 1 Mg/Ml Ampule IV 12/11/19 16:31 1 mg STAT ONE Administration Hydromorphone HCl Confirm 12/11/19 16:32 Hydromorphone 1 Mg/Ml Ampule Administered 12/11/19 16:33 Dose 1 mg .ROUTE .STK-MED ONE Sodium Chloride 1,000 mls @ 999 mls/hr 12/11/19 16:30 12/11/19 17:36 Sodium Chloride 0.9% 1000 Ml IV 12/11/19 17:30 Infused .Q1H1M STA Infusion Sodium Chloride Confirm 12/11/19 16:32 Sodium Chloride 0.9% 1000 Ml Administered 12/11/19 16:33 Dose 1,000 mls @ ud .ROUTE .STK-MED ONE Ketorolac Tromethamine 30 mg 12/11/19 16:30 12/11/19 16:35 Toradol 30 Mg Injection IV 12/11/19 16:31 30 mg STAT ONE Administration Ketorolac Tromethamine Confirm 12/11/19 16:32 Toradol 30 Mg Injection Administered 12/11/19 16:33 Dose 30 mg .ROUTE .STK-MED ONE Ondansetron HCl 4 mg 12/11/19 16:30 12/11/19 16:34 Zofran 4 Mg/2 Ml Vial IV 12/11/19 16:31 4 mg STAT ONE Administration Ondansetron HCl Confirm 12/11/19 16:32 Zofran 4 Mg/2 Ml Vial Administered 12/11/19 16:33 Dose 4 mg .ROUTE .STK-MED ONE Lab/Rad Data: Laboratory Result Diagrams 12/11/19 16:30 12/11/19 16:30 Laboratory Results 12/11/19 12/11/19 12/11/19 Range/Units 18:04 16:31 16:30 WBC (4.0-10.5) K/mm3 RBC (4.1-5.6) M/mm3 Hgb (12.5-18.0) gm/dl Hct (42-50) % MCV (78-100) fl MCH (26-32) pg MCHC (32-36) g/dl RDW (11.5-14.0) % Plt Count (150-450) K/mm3 MPV (7.5-11.0) fl Gran % (36.0-66.0) % Eos # (Auto) (0-0.5) Absolute Lymphs (auto) (1.0-4.6) Absolute Monos (auto) (0.0-1.3) Lymphocytes % (24.0-44.0) % Monocytes % (0.0-12.0) % Eosinophils % (0.00-5.0) % Basophils % (0.0-0.4) % Absolute Granulocytes (1.4-6.9) Basophils # (0-0.4) Sodium 138 (137-145) mmol/L Potassium 3.8 (3.5-5.1) mmol/L Chloride 99 (98-107) mmol/L Carbon Dioxide 28 (22-30) mmol/L Anion Gap 14.8 (5-15) MEQ/L BUN 21 H (9-20) mg/dL Creatinine 0.92 (0.66-1.25) mg/dL Estimated GFR > 60.0 ML/MIN Glucose 96 (74-106) mg/dL Lactic Acid 1.4 (0.4-2.0) Calcium 10.1 (8.4-10.2) mg/dL Total Bilirubin 0.80 (0.2-1.3) mg/dL AST 32 (17-59) U/L ALT 29 (0-50) U/L Alkaline Phosphatase 86 (38-126) U/L Serum Total Protein 7.7 (6.3-8.2) g/dL Albumin 4.6 (3.5-5.0) g/dL Amylase 65 (30-110) U/L Lipase 133 (23-300) U/L Urine Color YELLOW (YELLOW) Urine Appearance CLEAR (CLEAR) Urine pH 7.0 (5-6) Ur Specific [place] 1.019 (1.005-1.025) Urine Protein 30 (Negative) Urine Ketones NEGATIVE (NEGATIVE) Urine Blood NEGATIVE (0-5) Leandro/ul Urine Nitrite NEGATIVE (NEGATIVE) Urine Bilirubin NEGATIVE (NEGATIVE) Urine Urobilinogen NEGATIVE (0-1) mg/dL Ur Leukocyte Esterase NEGATIVE (NEGATIVE) Urine WBC (Auto) NONE (0-5) /HPF Urine RBC (Auto) 0-2 (0-2) /HPF U Epithel Cells (Auto) NONE (FEW) /HPF Urine Bacteria (Auto) NONE (NEGATIVE) /HPF Urine Mucus (Auto) SLIGHT (NEGATIVE) /HPF Urine Culture Reflexed NO (NO) Urine Glucose NEGATIVE (NEGATIVE) mg/dL 12/11/19 Range/Units 16:30 WBC 10.8 H (4.0-10.5) K/mm3 RBC 5.12 (4.1-5.6) M/mm3 Hgb 16.2 (12.5-18.0) gm/dl Hct 47.5 (42-50) % MCV 92.8 (78-100) fl MCH 31.6 (26-32) pg MCHC 34.1 (32-36) g/dl RDW 13.4 (11.5-14.0) % Plt Count 236 (150-450) K/mm3 MPV 12.2 H (7.5-11.0) fl Gran % 67.5 H (36.0-66.0) % Eos # (Auto) 0.12 (0-0.5) Absolute Lymphs (auto) 2.04 (1.0-4.6) Absolute Monos (auto) 1.34 H (0.0-1.3) Lymphocytes % 18.8 L (24.0-44.0) % Monocytes % 12.4 H (0.0-12.0) % Eosinophils % 1.1 (0.00-5.0) % Basophils % 0.2 (0.0-0.4) % Absolute Granulocytes 7.32 H (1.4-6.9) Basophils # 0.02 (0-0.4) Sodium (137-145) mmol/L Potassium (3.5-5.1) mmol/L Chloride (98-107) mmol/L Carbon Dioxide (22-30) mmol/L Anion Gap (5-15) MEQ/L BUN (9-20) mg/dL Creatinine (0.66-1.25) mg/dL Estimated GFR ML/MIN Glucose (74-106) mg/dL Lactic Acid (0.4-2.0) Calcium (8.4-10.2) mg/dL Total Bilirubin (0.2-1.3) mg/dL AST (17-59) U/L ALT (0-50) U/L Alkaline Phosphatase (38-126) U/L Serum Total Protein (6.3-8.2) g/dL Albumin (3.5-5.0) g/dL Amylase (30-110) U/L Lipase (23-300) U/L Urine Color (YELLOW) Urine Appearance (CLEAR) Urine pH (5-6) Ur Specific [place] (1.005-1.025) Urine Protein (Negative) Urine Ketones (NEGATIVE) Urine Blood (0-5) Leandro/ul Urine Nitrite (NEGATIVE) Urine Bilirubin (NEGATIVE) Urine Urobilinogen (0-1) mg/dL Ur Leukocyte Esterase (NEGATIVE) Urine WBC (Auto) (0-5) /HPF Urine RBC (Auto) (0-2) /HPF U Epithel Cells (Auto) (FEW) /HPF Urine Bacteria (Auto) (NEGATIVE) /HPF Urine Mucus (Auto) (NEGATIVE) /HPF Urine Culture Reflexed (NO) Urine Glucose (NEGATIVE) mg/dL - Progress Progress: improved, pain not gone completely, re-examined Progress Note: 12/11/19 18:20 CAT scan of the abdomen and pelvis reveals no evidence of any nephrolithiasis or ureterolithiasis. There is no evidence of any acute intra-abdominal process at this time. There is no abdominal aortic aneurysm present. Counseled pt/family regarding: lab results, diagnosis, need for follow-up, rad results - Departure Departure Disposition: Home Clinical Impression: Flank pain Condition: Stable Critical Care Time: No Referrals: DONALD PICKENS MD [Primary Care Provider] - Additional Instructions: Drink plenty of fluids. Take ibuprofen 600 mg orally 3 times a day with food for 5 days. Return to the emergency department if your symptoms worsen. Prescriptions: Hydrocodone/APAP 5-325 Tab^^^ [[place] 5-325 Tablet^^^] 1 tab PO Q6HPRN PRN #10 tablet MDD 6 PRN Reason: Pain
[2019-12-11] MEDS ORDERED: TORAdol 30 mg Injection IV ONE (16:30)
[2019-12-11] MEDS ORDERED: Zofran 4 MG/2 ML VIAL IV ONE (16:30)
[2019-12-11] MEDS ORDERED: Sodium Chloride 0.9% 1000 ML 1,000 ML IV STA (16:30)
[2019-12-11] MEDS ORDERED: Hydromorphone 1 mg/ml Ampule IV ONE (16:30)
[2019-12-11] MEDS ORDERED: Zofran 4 MG/2 ML VIAL ONE (16:32)
[2019-12-11] MEDS ORDERED: TORAdol 30 mg Injection ONE (16:32)
[2019-12-11] MEDS ORDERED: Hydromorphone 1 mg/ml Ampule ONE (16:32)
[2019-12-11] MEDS ORDERED: Sodium Chloride 0.9% 1000 ML 1,000 ML ONE (16:32)
[2019-12-11 16:43] LABS: Absolute Neutrophil Ct (ANC) 7.32 (1.4-6.9); BASOPHIL % 0.2 % (0.0-0.4); Basophil (Absolute #) 0.02 (0-0.4); Eosinophil % 1.1 % (0.00-5.0); Eosinophil (Absolute #) 0.12 (0-0.5); Hematocrit 47.5 % (42-50); Hemoglobin 16.2 gm/dl (12.5-18.0); Lymphocyte (Absolute #) 2.04 (1.0-4.6); Lymphocytes % 18.8 % (24.0-44.0); Mean Cell Volume 92.8 fl (78-100); Mean Corpuscular Hemoglobin 31.6 pg (26-32); Mean Corpuscular Hgb Concent. 34.1 g/dl (32-36); Mean Platelet Volume 12.2 fl (7.5-11.0); Monocyte (Absolute #) 1.34 (0.0-1.3); Monocytes % 12.4 % (0.0-12.0); Neutrophil % 67.5 % (36.0-66.0); Platelet Count 236 K/mm3 (150-450); Red Blood Count 5.12 M/mm3 (4.1-5.6); Red Cell Distribution Width 13.4 % (11.5-14.0); White Blood Count 10.8 K/mm3 (4.0-10.5)
[2019-12-11 16:44] LABS: Appearance CLEAR (CLEAR); Bilirubin NEGATIVE (NEGATIVE); Blood NEGATIVE Ery/ul (0-5); Glucose NEGATIVE (NEGATIVE); Ketones NEGATIVE (NEGATIVE); Leukocyte Esterase NEGATIVE (NEGATIVE); Mucus SLIGHT /HPF (NEGATIVE); Nitrite NEGATIVE (NEGATIVE); Protein,Urine Dip 30 (Negative); RBC 0-2 /HPF (0-2); Specific Gravity 1.019 (1.005-1.025); Urobilinogen NEGATIVE mg/dL (0-1)
[2019-12-11 16:53] LABS: ALBUMIN 4.6 g/dL (3.5-5.0); ALKALINE PHOSPHATASE 86 U/L (38-126); AMYLASE 65 U/L (30-110); ANION GAP 14.8 MEQ/L (5-15); BLOOD UREA NITROGEN 21 mg/dL (9-20); CHLORIDE 99 mmol/L (98-107); Calcium 10.1 mg/dL (8.4-10.2); Carbon Dioxide 28 mmol/L (22-30); Creatinine 1 0.92 mg/dL (0.66-1.25); Glucose 96 mg/dL (74-106); LIPASE 133 U/L (23-300); Potassium 3.8 mmol/L (3.5-5.1); SGOT/AST 32 U/L (17-59); SGPT/ALT 29 U/L (0-50); SODIUM 138 mmol/L (137-145); Total Protein 7.7 g/dL (6.3-8.2)
--- NOTE | 2019-12-11 17:17 | XRAY ---
Indication: Right flank pain. Multiple contiguous axial images obtained through the abdomen and pelvis without contrast using renal stone protocol. Comparison: September 10, 2018. Lung bases demonstrates minimal atelectasis/scarring. No infiltrate or effusion. Heart is not enlarged. No renal calculus or evidence for obstructive uropathy in either system. Stable tiny bilateral renal cysts. Noncontrasted stomach and bowel loops appear nonobstructed. Normal appendix. Stable mild scattered left hemicolon and sigmoid diverticulosis without diverticulitis. No free fluid/air. Remaining liver, gallbladder, pancreas, spleen, adrenal glands, kidneys, ureters, and bladder appear unremarkable for noncontrast exam. Stable mild aortoiliac calcifications without AAA. Osseous structures intact again with mild degenerative changes throughout the thoracolumbar spine and mild degenerative changes of both hips. Interval bilateral inguinal hernia repair. Impression: 1. Negative renal calculus or evidence for obstructive uropathy. Stable bilateral renal cysts. 2. Stable colonic diverticulosis without diverticulitis and chronic bony findings. 3. No acute intra-abdominal/pelvic abnormalities on this noncontrast exam.
[2019-12-11 18:48] VITALS: BP 135/84; PULSE 70; O2SAT 98
== END 2019-12-11 18:40 | disposition home or self-care (01) ==
LOC: ED 16:16
DX: R10.31 Right lower quadrant pain (principal); I10 Essential (primary) hypertension; Z79.899 Other long term (current) drug therapy; Z85.47 Personal history of malignant neoplasm of testis
CPT/HCPCS: 36000; 36415; 74176; 80053; 81001; 82150; 83605; 83690; 85025; 96374; 96375; 99284; J1170; J1885; J2405

== ENCOUNTER 2021-08-02 23:04 | Observation (INO) | payer MEDICARE, OTHER ==
[2021-08-02] MEDS ORDERED: Sodium Chloride 0.9% 1000 ML 1,000 ML IV SCH (23:30)
[2021-08-02] MEDS ORDERED: DUONEB 0.5-3 MG/3 ml Neb IH ONE ×2 (23:47→23:57)
--- NOTE | 2021-08-02 23:59 | ERPHSYRPT ---
- History of Present Illness Time Seen by Provider: 08/02/21 23:56 Source: patient Exam Limitations: clinical condition Patient Subjective Stated Complaint: "I can't breath." Triage Nursing Assessment: Patient reported that he tested positive for COVID-19 on 07/29/21 and that multiple family members also have COVID. He was prescribed doxycycline and prednisone for which he has completed the prednisone and almost completed the doxycycline. He reported worsening shortness of breath over the past 5 days with significant difficulty within the last 3 days. He reported body aches. Denied headache, dizziness, visual/auditory disturbances, chest pain, abdominal pain, nausea/vomiting/diarrhea, dysuria. Pupils 3mm bilateral. Oral mucosa pink/moist. Neck supple without JVD/lymphadenopathy. Symmetrical chest expansion. Lungs with extensive insp/exp wheezing and diminished sounds in the lower iglesias. Heart tones S1/S2 RRR without extra sounds. Peripheral pulses +3 bilateral. Skin hot/clammy. No noted dependent edema. Physician History: Patient is a 66-year-old white male who presents with cough and increasing shortness of breath over the last 5 days especially over the last 3 days. He tested positive for Covid on Tuesday the . He was seen here in the ER given doxycycline prednisone and albuterol but seems to be worse Timing/Duration: day(s) (5) Cough Quality/Degree: dry cough Possible Cause: occasional episodes Modifying Factors: Improves With: albuterol inhaler, coughing Associated Symptoms: fever, chills, chest pain/soreness, cough, shortness of breath, wheezing Allergies/Adverse Reactions: codeine [Codeine] Allergy (Mild, Verified 08/02/21 23:17) Rash onion Allergy (Verified 08/02/21 23:17) Home Medications: Losartan Potassium 100 mg PO DAILY 12/06/17 [History] diazePAM [Diazepam] 10 mg PO TIDPRN PRN 12/06/17 [History] Fluoxetine HCl 30 mg PO DAILY 09/10/18 [History] Hx Tetanus, Diphtheria Vaccination/Date Given: Yes Hx Influenza Vaccination/Date Given: No Hx Pneumococcal Vaccination/Date Given: No Travel Risk - International Travel Have you traveled outside of the country in past 3 weeks: No - Coronavirus Screening Are you exhibiting any of the following symptoms?: Yes Symptoms: Fever, Cough: New Onset, Shortness of Breath, Headaches/Body Aches/Fatigue Close contact with a COVID-19 positive Pt in past 14-21 Days: Yes - Vaccine Status Have you recieved a Covid-19 vaccination: No - Review of Systems Constitutional: Fever, No Chills Eyes: No Symptoms Ears, Nose, & Throat: Nose Discharge, Sinus Drainage Respiratory: Cough, Dyspnea, Dyspnea on Exertion (CASTILLO), Wheezing Cardiac: No Chest Pain, No Edema, No Syncope Abdominal/Gastrointestinal: No Abdominal Pain, No Nausea, No Vomiting, No Diarrhea Genitourinary Symptoms: No Dysuria Musculoskeletal: No Back Pain, No Neck Pain Skin: No Rash Neurological: No Dizziness, No Focal Weakness, No Sensory Changes Psychological: No Symptoms Endocrine: No Symptoms All Other Systems: Reviewed and Negative - Past Medical History Pertinent Past Medical History: Yes Neurological History: No Pertinent History ENT History: No Pertinent History Cardiac History: Hypertension Respiratory History: No Pertinent History Endocrine Medical History: No Pertinent History Musculoskeletal History: Arthritis GI Medical History: No Pertinent History History: No Pertinent History Psycho-Social History: Other Male Reproductive Disorders: Testicular Cancer - Past Surgical History Past Surgical History: Yes Neuro Surgical History: No Pertinent History Cardiac: No Pertinent History Respiratory: No Pertinent History Gastrointestinal: No Pertinent History Genitourinary: No Pertinent History Musculoskeletal: Orthopedic Surgery Male Surgical History: Testicular Surgery, Vasectomy Other Surgical History: back surgery - Social History Smoking Status: Never smoker How long have you smoked: 19 Exposure to second hand smoke: No Drug Use: none Patient Lives Alone: No - Nursing Vital Signs Nursing Vital Signs: Initial Vital Signs Temperature 102.4 F 08/02/21 23:04 Pulse Rate 91 H 08/02/21 23:04 Respiratory Rate 24 08/02/21 23:04 Blood Pressure 139/77 08/02/21 23:04 O2 Sat by Pulse Oximetry 91 L 08/02/21 23:04 Pain Scale Pain Intensity 6 - Physical Exam General Appearance: no apparent distress, alert Eye Exam: PERRL/EOMI, eyes nml inspection Ears, Nose, Throat Exam: normal ENT inspection, TMs normal, pharynx normal, moist mucous membranes Neck Exam: normal inspection, non-tender, supple, full range of motion Respiratory Exam: lungs clear, respiratory distress, diminished breath sounds, crackles/rales, rhonchi, wheezing Cardiovascular Exam: regular rate/rhythm, normal heart sounds Gastrointestinal/Abdomen Exam: soft, No tenderness Back Exam: normal inspection, No CVA tenderness, No vertebral tenderness Extremity Exam: normal inspection, normal range of motion Neurologic Exam: alert, oriented x 3, cooperative, normal mood/affect, sensation nml, No motor deficits Skin Exam: normal color, warm, dry, No rash Lymphatic Exam: No adenopathy SpO2: 91 - Course Nursing assessment & vital signs reviewed: Yes EKG Interpreted by Me: RATE (85), NORMAL AXIS, NORMAL INTERVALS, NORMAL QRS, Non-specific ST Changes - Radiology Exams Chest X-ray Interpretation: Interpreted by me, Other (Bilateral opacities especially on the left) Ordered Tests: Active Orders 24 hr Category Date Time Status EKG-ER Only STAT Care 08/02/21 23:23 Active CHEST 1 VIEW (PORTABLE) Stat Exams 08/02/21 23:23 Taken BLOOD CULTURE Stat Lab 08/02/21 00:17 Received CBC W DIFF Stat Lab 08/02/21 00:16 Completed CMP Stat Lab 08/02/21 00:16 Completed D-DIMER QUANTITATIVE Stat Lab 08/02/21 00:16 Completed Lactic Acid Stat Lab 08/02/21 23:48 Completed MAGNESIUM Stat Lab 08/02/21 00:16 Completed NT PRO BNP Stat Lab 08/02/21 00:16 Completed PROTIME WITH INR Stat Lab 08/02/21 00:16 Completed TROPONIN Q3H Lab 08/02/21 00:16 Completed TROPONIN Q3H Lab 08/03/21 02:30 Ordered TROPONIN Q3H Lab 08/03/21 05:30 Ordered TROPONIN Q3H Lab 08/03/21 08:30 Ordered TROPONIN Q3H Lab 08/03/21 11:30 Ordered UA W/RFX UR CULTURE Stat Lab 08/02/21 23:23 Ordered Respiratory Therapy Assessment DAILY RT 08/03/21 00:02 Completed Medication Summary Generic Name Dose Route Start Last Admin Trade Name Freq PRN Reason Stop Dose Admin Acetaminophen 1,000 mg 08/02/21 23:59 08/03/21 00:11 Acetaminophen 500 Mg Tablet PO 09/01/21 23:58 1,000 mg Q4H PRN PRN Administration HEADACHE Sodium Chloride 1,000 mls @ 100 mls/hr 08/02/21 23:30 08/03/21 00:11 Sodium Chloride 0.9% 1000 Ml IV 09/01/21 23:29 100 mls/hr .Q10H ANDREW Administration Discontinued Medications Generic Name Dose Route Start Last Admin Trade Name Cristina PRN Reason Stop Dose Admin Albuterol/Ipratropium 3 ml 08/02/21 23:47 08/02/21 23:58 Ipratropium/Albuterol Sulfate 3 Ml Ampul.Neb IH 08/02/21 23:48 3 ml STAT ONE Administration Albuterol/Ipratropium Confirm 08/02/21 23:57 Ipratropium/Albuterol Sulfate 3 Ml Ampul.Neb Administered 08/02/21 23:58 Dose 3 ml IH .STK-MED ONE Lab/Rad Data: Laboratory Result Diagrams 08/02/21 00:16 08/02/21 00:16 Laboratory Results 08/02/21 08/02/21 08/02/21 Range/Units 23:48 00:16 00:16 WBC (4.0-10.5) K/mm3 RBC (4.1-5.6) M/mm3 Hgb (12.5-18.0) gm/dl Hct (42-50) % MCV (78-100) fl MCH (26-32) pg MCHC (32-36) g/dl RDW (11.5-14.0) % Plt Count (150-450) K/mm3 MPV (7.5-11.0) fl Gran % (36.0-66.0) % Eos # (Auto) (0-0.5) Absolute Lymphs (auto) (1.0-4.6) Absolute Monos (auto) (0.0-1.3) Lymphocytes % (24.0-44.0) % Monocytes % (0.0-12.0) % Eosinophils % (0.00-5.0) % Basophils % (0.0-0.4) % Absolute Granulocytes (1.4-6.9) Basophils # (0-0.4) PT 12.5 (9.4-12.5) SECONDS INR 1.06 (0.8-3.0) D-Dimer 503 H* (215-500) ng/mL Sodium (137-145) mmol/L Potassium (3.5-5.1) mmol/L Chloride (98-107) mmol/L Carbon Dioxide (22-30) mmol/L Anion Gap (5-15) MEQ/L BUN (9-20) mg/dL Creatinine (0.66-1.25) mg/dL Estimated GFR ML/MIN Glucose (74-106) mg/dL Lactic Acid 2.2 H (0.4-2.0) Calcium (8.4-10.2) mg/dL Magnesium (1.6-2.3) mg/dL Total Bilirubin (0.2-1.3) mg/dL AST (17-59) U/L ALT (0-50) U/L Alkaline Phosphatase (38-126) U/L Troponin I 0.027 (0.000-0.034) ng/mL NT-Pro-B Natriuret Pep (0-900) pg/mL Serum Total Protein (6.3-8.2) g/dL Albumin (3.5-5.0) g/dL 08/02/21 08/02/21 Range/Units 00:16 00:16 WBC 7.3 (4.0-10.5) K/mm3 RBC 5.02 (4.1-5.6) M/mm3 Hgb 15.8 (12.5-18.0) gm/dl Hct 46.5 (42-50) % MCV 92.6 (78-100) fl MCH 31.5 (26-32) pg MCHC 34.0 (32-36) g/dl RDW 12.9 (11.5-14.0) % Plt Count 144 L (150-450) K/mm3 MPV 12.1 H (7.5-11.0) fl Gran % 84.6 H (36.0-66.0) % Eos # (Auto) 0 (0-0.5) Absolute Lymphs (auto) 0.64 L (1.0-4.6) Absolute Monos (auto) 0.47 (0.0-1.3) Lymphocytes % 8.8 L (24.0-44.0) % Monocytes % 6.5 (0.0-12.0) % Eosinophils % 0.0 (0.00-5.0) % Basophils % 0.1 (0.0-0.4) % Absolute Granulocytes 6.16 (1.4-6.9) Basophils # 0.01 (0-0.4) PT (9.4-12.5) SECONDS INR (0.8-3.0) D-Dimer (215-500) ng/mL Sodium 129 L (137-145) mmol/L Potassium 3.6 (3.5-5.1) mmol/L Chloride 87 L (98-107) mmol/L Carbon Dioxide 31 H (22-30) mmol/L Anion Gap 15.0 (5-15) MEQ/L BUN 25 H (9-20) mg/dL Creatinine 1.35 H (0.66-1.25) mg/dL Estimated GFR 55.9 ML/MIN Glucose 116 H (74-106) mg/dL Lactic Acid (0.4-2.0) Calcium 9.0 (8.4-10.2) mg/dL Magnesium 1.3 L (1.6-2.3) mg/dL Total Bilirubin 1.00 (0.2-1.3) mg/dL AST 159 H (17-59) U/L ALT 113 H (0-50) U/L Alkaline Phosphatase 196 H (38-126) U/L Troponin I (0.000-0.034) ng/mL NT-Pro-B Natriuret Pep 279 (0-900) pg/mL Serum Total Protein 6.8 (6.3-8.2) g/dL Albumin 4.3 (3.5-5.0) g/dL - Progress Progress: unchanged Air Movement: fair Blood Culture(s) Obtained: Yes Antibiotics given: No Discussed with DrKinza: Other (Dr Godfrey) - Departure Departure Disposition: Observation Clinical Impression: Pneumonia due to COVID-19 virus Condition: Fair Critical Care Time: No Referrals: CECE YU MD [Primary Care Provider] - Follow up/PCP as directed
[2021-08-03] MEDS ORDERED: TYLENOL EXTRA STRENGTH 500 MG ONE (00:10)
[2021-08-03] MEDS: TYLENOL EXTRA STRENGTH 500 MG PO PRN ×2 (00:11→04:31)
[2021-08-03 00:21] LABS: Absolute Neutrophil Ct (ANC) 6.16 (1.4-6.9); BASOPHIL % 0.1 % (0.0-0.4); Basophil (Absolute #) 0.01 (0-0.4); Eosinophil (Absolute #) 0 (0-0.5); Hematocrit 46.5 % (42-50); Hemoglobin 15.8 gm/dl (12.5-18.0); Lymphocyte (Absolute #) 0.64 (1.0-4.6); Lymphocytes % 8.8 % (24.0-44.0); Mean Cell Volume 92.6 fl (78-100); Mean Corpuscular Hemoglobin 31.5 pg (26-32); Mean Platelet Volume 12.1 fl (7.5-11.0); Monocyte (Absolute #) 0.47 (0.0-1.3); Monocytes % 6.5 % (0.0-12.0); Neutrophil % 84.6 % (36.0-66.0); Platelet Count 144 K/mm3 (150-450); Red Blood Count 5.02 M/mm3 (4.1-5.6); Red Cell Distribution Width 12.9 % (11.5-14.0); White Blood Count 7.3 K/mm3 (4.0-10.5)
[2021-08-03 00:28] LABS: INR 1.06 (0.8-3.0); PROTIME 12.5 SECONDS (9.4-12.5)
[2021-08-03 00:41] LABS: ALBUMIN 4.3 g/dL (3.5-5.0); Creatinine 1 1.35 mg/dL (0.66-1.25); EST GLOMERULAR FILTRATION RATE 55.9 ML/MIN; MAGNESIUM 1.3 mg/dL (1.6-2.3); Potassium 3.6 mmol/L (3.5-5.1); Total Protein 6.8 g/dL (6.3-8.2)
[2021-08-03] MEDS ORDERED: Sodium Chloride 0.9% 1000 ML 1,000 ML IV SCH (04:15)
[2021-08-03] MEDS ORDERED: Ativan 1 MG PO PRN (04:15)
[2021-08-03] MEDS ORDERED: Ativan 2 MG/1 ML VIAL IV PRN (04:16)
[2021-08-03] MEDS ORDERED: VENTOLIN COMMON CANISTER IH PRN (05:08)
[2021-08-03 06:13] LABS: Absolute Neutrophil Ct (ANC) 5.53 (1.4-6.9); BASOPHIL % 0.1 % (0.0-0.4); Basophil (Absolute #) 0.01 (0-0.4); Eosinophil (Absolute #) 0 (0-0.5); Hematocrit 44.1 % (42-50); Hemoglobin 15.2 gm/dl (12.5-18.0); Lymphocyte (Absolute #) 0.79 (1.0-4.6); Lymphocytes % 11.4 % (24.0-44.0); Mean Cell Volume 92.1 fl (78-100); Mean Corpuscular Hemoglobin 31.7 pg (26-32); Mean Corpuscular Hgb Concent. 34.5 g/dl (32-36); Mean Platelet Volume 12.1 fl (7.5-11.0); Monocyte (Absolute #) 0.59 (0.0-1.3); Monocytes % 8.5 % (0.0-12.0); Platelet Count 134 K/mm3 (150-450); Red Blood Count 4.79 M/mm3 (4.1-5.6); Red Cell Distribution Width 12.9 % (11.5-14.0); White Blood Count 6.9 K/mm3 (4.0-10.5)
[2021-08-03 06:51] LABS: ALBUMIN 3.7 g/dL (3.5-5.0); ALKALINE PHOSPHATASE 167 U/L (38-126); ANION GAP 13.8 MEQ/L (5-15); BLOOD UREA NITROGEN 30 mg/dL (9-20); CHLORIDE 92 mmol/L (98-107); Calcium 8.5 mg/dL (8.4-10.2); Carbon Dioxide 26 mmol/L (22-30); Creatinine 1 1.21 mg/dL (0.66-1.25); EST GLOMERULAR FILTRATION RATE > 60.0 ML/MIN; Glucose 110 mg/dL (74-106); NT PRO BNP 335 pg/mL (0-900); Potassium 3.4 mmol/L (3.5-5.1); SGOT/AST 124 U/L (17-59); SGPT/ALT 102 U/L (0-50); SODIUM 129 mmol/L (137-145); Total Protein 6.2 g/dL (6.3-8.2)
[2021-08-03 08:02] LABS: Appearance CLEAR (CLEAR); Bilirubin NEGATIVE (NEGATIVE); Blood SMALL Ery/ul (0-5); Glucose NEGATIVE (NEGATIVE); Ketones NEGATIVE (NEGATIVE); Leukocyte Esterase NEGATIVE (NEGATIVE); Mucus SLIGHT /HPF (NEGATIVE); Nitrite NEGATIVE (NEGATIVE); Protein,Urine Dip 100 (Negative); Specific Gravity 1.015 (1.005-1.025); Urobilinogen NEGATIVE mg/dL (0-1)
--- NOTE | 2021-08-03 08:44 | XRAY ---
Indication: Short of breath. Positive Covid 19. Comparison: July 28, 2021. Portable chest now underinflated with new mild diffuse bilateral patchy airspace disease without consolidation/large effusion. Heart still within normal limits. Bony thorax intact.
[2021-08-03] MEDS ORDERED: Decadron 4 MG INJ IV SCH (10:00)
[2021-08-03] MEDS ORDERED: REMDESIVIR 200 MG in Sodium Chloride 0.9% 250 ML 250 ML IV ONE ×2 (10:00→12:00)
[2021-08-03] MEDS: ENOXAPARIN SODIUM SQ SCH (10:43)
[2021-08-03] MEDS: DECADRON 10MG INJ. IV SCH (10:43)
[2021-08-03] MEDS: OLUMIANT PO SCH (10:43)
[2021-08-03] MEDS ORDERED: DIAZEPAM 10 MG PO PRN (11:00)
[2021-08-03] MEDS ORDERED: MYSOLINE 50MG PO PRN (11:00)
[2021-08-03] MEDS ORDERED: Valium 5 MG PO PRN (11:02)
[2021-08-03] MEDS: HYDRODIURIL 25 MG PO SCH ×2 (11:36)
[2021-08-03] MEDS: COZAAR PO SCH ×2 (11:36)
[2021-08-03] MEDS: Prozac 20 MG PO SCH (11:36)
[2021-08-03] MEDS ORDERED: hydroDIURIL 25 MG ONE (11:37)
[2021-08-03] MEDS: HYDROCODONE-CHLORPHEN ER SUSP PO PRN (11:38)
--- NOTE | 2021-08-03 15:29 | HP ---
CHIEF COMPLAINT: Fever, chills, severe muscle ache. HISTORY OF PRESENT ILLNESS: The patient is a 66-year-old white male who has been sick with the above symptoms the last three days. He did not have the COVID vaccine. He tested positive for COVID. He has occasional cough. No shortness of breath. His O2 was normal. He had severe pain. He had a temperature of 110F in the emergency room. MEDICATIONS: Diazepam 10 mg t.i.d., Prozac 30 q.d., losartan 100 q.d. ALLERGIES: CODEINE. ONION. PAST MEDICAL HISTORY: Medical problems of anxiety, depression. PAST SURGICAL HISTORY: Broken leg. Testicular torsion. Vasectomy. Back surgery. Nothing recently. SOCIAL HISTORY: Nonsmoker, nondrinker. Happily with kids that are grown up. 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 PHYSICAL EXAMINATION: The patient is alert, orientated and hard of hearing. VITAL SIGNS: Temperature 102.4F, pulse 91, respirations 20, blood pressure 120/70. O2 saturation 90%. HEENT: Pupils equal and reactive to light. Hearing is markedly decreased. NECK: Supple without adenopathy. CHEST: Clear. Chest wall tender. CVS: No murmurs or gallops. ABDOMEN: Soft. No masses or organomegaly. EXTREMITIES: He can move all. No edema. LAB DATA AND TESTS: EKG nonspecific abnormalities, nothing looks extremely acute. D-dimer elevated just minimally at 503. Creatinine 1.35. Sodium low at 129, creatinine 1.9. Liver enzymes were all mildly elevated. CTNI is normal. IMPRESSION: The patient has COVID. He has a lot of pain from it, coughing. He had chest x-ray report which I imagine he has COVID pneumonia. PLAN: Treat with COVID medications, pain medications, continue his medicines for anxiety, depression and pain.
[2021-08-04] MEDS: HYDROCODONE-CHLORPHEN ER SUSP PO PRN (01:48)
[2021-08-04 06:41] LABS: Hematocrit 43.3 % (42-50); Hemoglobin 14.6 gm/dl (12.5-18.0); Mean Cell Volume 92.9 fl (78-100); Mean Corpuscular Hemoglobin 31.3 pg (26-32); Mean Corpuscular Hgb Concent. 33.7 g/dl (32-36); Mean Platelet Volume 11.5 fl (7.5-11.0); Platelet Count 142 K/mm3 (150-450); Red Blood Count 4.66 M/mm3 (4.1-5.6); Red Cell Distribution Width 12.8 % (11.5-14.0); White Blood Count 6.7 K/mm3 (4.0-10.5)
[2021-08-04 07:03] LABS: ALBUMIN 3.9 g/dL (3.5-5.0); ALKALINE PHOSPHATASE 170 U/L (38-126); ANION GAP 12.9 MEQ/L (5-15); BLOOD UREA NITROGEN 28 mg/dL (9-20); CHLORIDE 92 mmol/L (98-107); Calcium 8.3 mg/dL (8.4-10.2); Carbon Dioxide 29 mmol/L (22-30); Creatinine 1 1.02 mg/dL (0.66-1.25); EST GLOMERULAR FILTRATION RATE > 60.0 ML/MIN; Glucose 94 mg/dL (74-106); Potassium 3.3 mmol/L (3.5-5.1); SGOT/AST 108 U/L (17-59); SGPT/ALT 109 U/L (0-50); SODIUM 130 mmol/L (137-145); Total Protein 6.6 g/dL (6.3-8.2)
[2021-08-04 09:07] VITALS: BP 134/87
[2021-08-04] MEDS: OLUMIANT PO SCH (09:31)
[2021-08-04] MEDS: Prozac 20 MG PO SCH (09:31)
[2021-08-04] MEDS: COZAAR PO SCH ×2 (09:32)
[2021-08-04] MEDS: ENOXAPARIN SODIUM SQ SCH ×2 (09:32→10:29)
[2021-08-04] MEDS: HYDRODIURIL 25 MG PO SCH ×2 (09:32)
[2021-08-04 09:47] VITALS: PULSE 77
[2021-08-04] MEDS ORDERED: REMDESIVIR 100 MG in Sodium Chloride 0.9% 100 ML BAG 100 ML IV SCH (10:00)
[2021-08-04] MEDS ORDERED: NON-FORMULARY ITEM (Losartan/Hydrochlorothiazide [Losartan-Hctz 100-25 Mg Tab] 1 EACH Tabl PO SCH (10:00)
[2021-08-04] MEDS: DECADRON 10MG INJ. IV SCH (10:29)
[2021-08-04 11:33] VITALS: O2SAT 95
== END 2021-08-04 10:35 | disposition home or self-care (01) ==
LOC: ED 23:04 → MED SURG 08-03 02:25
PROVIDERS: ADMIT Family Medicine; ATTEND Family Medicine
DX: U07.1 COVID-19 (principal); J12.82 Pneumonia due to coronavirus disease 2019; Z79.899 Other long term (current) drug therapy; R07.9 Chest pain, unspecified
CPT/HCPCS: 36415; 71045; 80053; 81001; 82947; 83605; 83735; 83880; 84484; 85025; 85027; 85379; 85610; 87040; 87086; 93005; 93268; 94640; 94762; 99285; G0378; J1100; J1650; A9270-GY

== ENCOUNTER 2024-05-01 10:39 | Emergency (ER) | payer MEDICARE, OTHER ==
[2024-05-01 10:59] VITALS: RESP 20; TEMP 97.9
--- NOTE | 2024-05-01 10:59 | ERPHSYRPT ---
- History of Present Illness Time Seen by Provider: 05/01/24 10:56 Source: patient Exam Limitations: no limitations Physician History: 69-year-old male presents to our ED for evaluation of pain to his left hip and lumbar spine. Pain started 2 to 3 days ago. Pain has been constant. Patient believes his left hip is dislocated. Patient points to his left low back and states that he is experiencing sciatica as well. Patient appears to be very uncomfortable. No trauma no falls no fever. Pain described as an ache that is localized to his left hip with radiation to his left upper posterior thigh. at bedside. They voiced no other complaints or concerns at this time. Portions of this note were created with voice recognition technology. There may be grammatical, spelling, punctuation or sound alike errors Timing/Duration: day(s) (2 to 3 days ago) Severity: moderate Modifying Factors: Improves With: movement Associated Symptoms: denies symptoms Allergies/Adverse Reactions: codeine [Codeine] Allergy (Mild, Verified 05/01/24 10:47) Rash onion Allergy (Verified 05/01/24 10:47) Home Medications: diazePAM [Diazepam] 10 mg PO TIDPRN PRN 12/06/17 [History] Fluoxetine HCl 20 mg PO DAILY 09/10/18 [History] Losartan/Hydrochlorothiazide [Losartan-Hctz 100-25 mg Tab] 1 tab PO DAILY 08/03/21 [History] Primidone 50 MG [Mysoline 50Mg] 50 mg PO TID PRN 08/03/21 [History] Hx Tetanus, Diphtheria Vaccination/Date Given: Yes Hx Influenza Vaccination/Date Given: No Hx Pneumococcal Vaccination/Date Given: No - Review of Systems Constitutional: No Symptoms, No Fever, No Chills Eyes: No Symptoms Ears, Nose, & Throat: No Symptoms Respiratory: No Symptoms, No Cough, No Dyspnea Cardiac: No Symptoms, No Chest Pain, No Edema, No Syncope Abdominal/Gastrointestinal: No Symptoms, No Abdominal Pain, No Nausea, No Vomiting, No Diarrhea Genitourinary Symptoms: No Symptoms, No Dysuria Musculoskeletal: No Symptoms, No Back Pain, No Neck Pain Skin: No Symptoms, No Rash Neurological: No Symptoms, No Dizziness, No Focal Weakness, No Sensory Changes Psychological: No Symptoms Endocrine: No Symptoms Hematologic/Lymphatic: No Symptoms Immunological/Allergic: No Symptoms All Other Systems: Reviewed and Negative - Past Medical History Pertinent Past Medical History: Yes Neurological History: No Pertinent History ENT History: No Pertinent History Cardiac History: Hypertension Respiratory History: No Pertinent History Endocrine Medical History: No Pertinent History Musculoskeletal History: Degenerative Disk Disease GI Medical History: No Pertinent History History: No Pertinent History Psycho-Social History: Other Male Reproductive Disorders: Testicular Cancer Other Medical History: HX LEFT ROTATOR CUFF INJURY - NO SURGERY REQUIRED. HX BACK SURGERY 2004 AND STATES HE WAS TOLD THEY PUT IN AN ARTIFICIAL DISC. SCAR PRESENT IN UPPER LUMBAR/LOWER THORACIC REGION - Past Surgical History Past Surgical History: Yes Neuro Surgical History: No Pertinent History Cardiac: No Pertinent History Respiratory: No Pertinent History Gastrointestinal: No Pertinent History Genitourinary: No Pertinent History Musculoskeletal: Orthopedic Surgery Male Surgical History: Testicular Surgery, Vasectomy Other Surgical History: back surgery - Social History Smoking Status: Former smoker How long have you smoked: 19 Exposure to second hand smoke: No Drug Use: none Patient Lives Alone: No - Nursing Vital Signs Nursing Vital Signs: Initial Vital Signs Temperature 97.9 F 05/01/24 10:49 Pulse Rate 79 05/01/24 10:49 Respiratory Rate 20 05/01/24 10:49 Blood Pressure 121/78 05/01/24 10:49 O2 Sat by Pulse Oximetry 100 05/01/24 10:49 Pain Scale Pain Intensity 8 - Physical Exam General Appearance: no apparent distress, alert Eye Exam: PERRL/EOMI, eyes nml inspection Ears, Nose, Throat Exam: normal ENT inspection, moist mucous membranes Neck Exam: normal inspection, non-tender, supple, full range of motion Respiratory Exam: normal breath sounds, lungs clear, airway intact, No respiratory distress Cardiovascular Exam: regular rate/rhythm, normal heart sounds, normal peripheral pulses Gastrointestinal/Abdomen Exam: soft, normal bowel sounds, No tenderness, No mass Back Exam: normal inspection, normal range of motion, No CVA tenderness, No vertebral tenderness Extremity Exam: normal inspection, normal range of motion, pelvis stable, other (Both lower extremities are neurovascular intact distally compartments are soft cap refill less than 2 seconds. Tenderness to palpation at the left lateral hip and left SI joint region. Overlying soft tissue intact no signs of trauma) Neurologic Exam: alert, oriented x 3, cooperative, normal mood/affect, sensation nml, No motor deficits Skin Exam: normal color, warm, dry, No rash Lymphatic Exam: No adenopathy SpO2 Interpretation: normal O2 Delivery: Room Air - Course Nursing assessment & vital signs reviewed: Yes - CT Exams Lower Extremity CT Interpretation: Tele-radiologist Report (Heterotopic ossification left hip sigmoid diverticulosis, degenerative arthritis of lumbar spine) Ordered Tests: Active Orders 24 hr Category Date Time Status IV Insertion STAT Care 05/01/24 10:54 Active LOWER EXTREMITY WO CONTRAST [CT] Stat Exams 05/01/24 10:54 Completed LUMBAR SPINE W/O [CT] Stat Exams 05/01/24 10:53 Completed Medication Summary Discontinued Medications Generic Name Dose Route Start Last Admin Trade Name Freq PRN Reason Stop Dose Admin Dexamethasone Sodium Phosphate 10 mg 05/01/24 10:55 05/01/24 11:01 Dexamethasone Sod Phosphate 10 Mg/Ml IV 05/01/24 10:56 10 mg STAT ONE Administration Dexamethasone Sodium Phosphate Confirm 05/01/24 11:00 Dexamethasone Sod Phosphate 10 Mg/Ml Administered 05/01/24 11:01 Dose 10 mg .ROUTE .STK-MED ONE Hydromorphone HCl 0.5 mg 05/01/24 11:46 05/01/24 11:50 Hydromorphone 1 Mg/1ml Inj IV 05/01/24 11:47 0.5 mg STAT ONE Administration Hydromorphone HCl Confirm 05/01/24 11:50 Hydromorphone 1 Mg/1ml Inj Administered 05/01/24 11:51 Dose 1 mg .ROUTE .STK-MED ONE Ketorolac Tromethamine 30 mg 05/01/24 10:55 05/01/24 11:02 Ketorolac Tromethamine 30 Mg/Ml Inj IV 05/01/24 10:56 30 mg STAT ONE Administration Ketorolac Tromethamine Confirm 05/01/24 11:00 Ketorolac Tromethamine 30 Mg/Ml Inj Administered 05/01/24 11:01 Dose 30 mg .ROUTE .STK-MED ONE - Progress Progress: improved Progress Note: 69-year-old male presents to emergency department for evaluation of left hip pain. Patient felt as though his left hip dislocated. Physical exam essentially nonremarkable. Lower extremity neurovascular intact distally compartments are soft cap refill less than [address] reveals heterotopic ossification of the left hip. Degenerative arthritis of lumbar spine. Patient has a walker. Patient referred to orthopedic clinic. Patient received Toradol morphine and Decadron for pain control. A prescription for Toradol forwarded to patient's pharmacy. Patient agrees to follow-up with orthopedic clinic tomorrow as recommended. at bedside. They voiced no other complaints or concerns at this time. Complexity of problem addressed is moderate acute complicated. No critical care time. Complex of data reviewed and analyzed is moderate. Test ordered test reviewed results analyzed and correlated clinically with history and physical exam. Risk of complication and or risk of morbidity/mortality of patient management is moderate. A prescription for Toradol forwarded to patient's pharmacy. Vital stable. Time spent to discharge patient approximately 15 minutes. Plan of care established for shared decision making. No social determinants of health present impede follow-up. Portions of this note were created with voice recognition technology. There may be grammatical, spelling, punctuation or sound alike errors 05/01/24 13:06 Counseled pt/family regarding: lab results, diagnosis, need for follow-up, rad results - Departure Departure Disposition: Home Clinical Impression: Hip pain, Left hip heterotopic ossification, Sigmoid diverticulosis Condition: Stable Critical Care Time: No Referrals: CECE YU MD [Primary Care Provider] - Follow up/PCP as directed Additional Instructions: Discharge/Care Plan KHURRAM GRANDA was seen on 05/01/24 in the Emergency Room. The patient was counseled regarding Diagnosis,Lab results, Imaging studies, need for follow up and when to return to the Emergency Room. Prescriptions given: Discharge Note I have spoken with the patient and/or caregivers. I have explained the patient's condition, diagnosis and treatment plan based on the information available to me at this time. I have answered the patient's and/or caregiver's questions and addressed any concerns. The patient and/or caregivers have as good understanding of the patient's diagnosis, condition and treatment plan as can be expected at this point. The vital signs have been stable. The patient's condition is stable and appropriate for discharge from the emergency department. The patient will pursue further outpatient evaluation with the primary care physician or other designated or consulting physician as outlined in the discharge instructions. The patient and/or caregivers are agreeable to this plan of care and follow-up instructions have been explained in detail. The patient and/or caregivers have received these instruction. The patient/and or caregivers are aware that any significant change in condition or worsening of symptoms should prompt an immediate return to this or the closest emergency department or call 911. Prescriptions: Ketorolac Trometh 10 mg Tab [TORAdol 10 MG TABLET] 10 mg PO TID 5 Days #15 tablet Outpatient Orders: Ortho Referral Time Frame: 1 Day, Facility: [facility], Location: [facility]
[2024-05-01] MEDS ORDERED: DECADRON 10MG INJ. ONE (11:00)
[2024-05-01] MEDS ORDERED: TORAdol 30 mg Injection ONE (11:00)
[2024-05-01] MEDS: DECADRON 10MG INJ. IV ONE (11:01)
[2024-05-01] MEDS: TORAdol 30 mg Injection IV ONE (11:02)
[2024-05-01] MEDS ORDERED: Hydromorphone 1 mg/ml Injection ONE (11:50)
[2024-05-01] MEDS: Hydromorphone 1 mg/ml Injection IV ONE (11:50)
--- NOTE | 2024-05-01 12:33 | XRAY ---
Indication: Pain. Multiple contiguous axial images obtained through the lumbar spine. Sagittal and coronal reformatted images obtained. Comparison: Lumbar radiograph January 18, 2024. Osseous structures remain demineralized. There remains mild/moderate L2-S1 degenerative spondylosis. Again greatest extent at L5-S1 where there is broad-based disc osteophyte complex, degenerative vacuum disc phenomena, disc space narrowing, and moderate bilateral degenerative facet hypertrophy. No acute fracture, suspicious bony lesions, or spinal canal stenosis. Again minimal scattered aortoiliac calcifications. Impression: Chronic findings including osteopenia, multilevel degenerative spondylosis, and arteriosclerotic disease similar in appearance to comparison lumbar radiograph. No new/acute findings.
--- NOTE | 2024-05-01 12:37 | XRAY ---
Indication: Pain. Multiple contiguous axial images obtained through the left hip without contrast. Sagittal and coronal reformatted images obtained. Comparison: None Osseous structures demineralized. Mild/moderate degenerative arthropathy with joint space narrowing and bony spurring. Hip joint demonstrates 2 well-circumscribed intra-articular heterotopic ossifications, largest 4 x 6 mm and probably degenerative versus sequela old injury. Greater trochanter demonstrates additional small bony spurring. Otherwise no acute fracture, dislocation, or suspicious bony lesions. Visualized noncontrasted soft tissues demonstrates sigmoid diverticulosis. Impression: 1. Osteopenia, degenerative arthropathy, and sigmoid diverticulosis. 2. Left hip intra-articular heterotopic ossifications either degenerative versus old injury. 3. Remaining CT left hip negative.
[2024-05-01 13:13] VITALS: BP 109/72; PULSE 74; O2SAT 98
== END 2024-05-01 13:51 | disposition home or self-care (01) ==
LOC: ED 10:39
DX: M61.58 Other ossification of muscle, other site (principal); M25.552 Pain in left hip; K57.30 Diverticulosis of large intestine without perforation or abscess without bleeding; M54.50 Low back pain, unspecified; I10 Essential (primary) hypertension; Z79.899 Other long term (current) drug therapy
CPT/HCPCS: 36000; 72131; 73700; 96374; 96375; 99284; J1100; J1170; J1885